=== PATIENT | male | born 1950 | race Caucasian/White ===

== ENCOUNTER 2016-12-16 06:15 | Day surgery (SDC) | payer OTHER ==
[~2016-12-16] VITALS: Ht 177.8 cm; Wt 81.8 kg
[~2016-12-16 06:15] MED LIST: 24HOUR ALLERGY10 MG PO; FISH OIL 1,2001 EAC4 PO; NOHOMEMEDS; SKELAXIN800 MG PO; ULTRAM50 MG PO; ZETIA10 MG PO
[2016-12-16 07:36] VITALS: BP 119/63
[2016-12-16 11:17] VITALS: BP 122/74
[2016-12-16 12:18] VITALS: BP 118/66
[2016-12-16 13:26] VITALS: BP 136/73
== END 2016-12-16 13:35 | disposition home or self-care (01) ==
LOC: SDC 06:15
PROC: 0SB20ZZ Excision of Lumbar Vertebral Disc, Open Approach (ICD-10-PCS; principal; 2016-12-16)
PROC: 01NB0ZZ Release Lumbar Nerve, Open Approach (ICD-10-PCS; principal; 2016-12-16)
DX: M51.16 Intervertebral disc disorders with radiculopathy, lumbar region (principal); E78.00 Pure hypercholesterolemia, unspecified; F17.210 Nicotine dependence, cigarettes, uncomplicated
CPT/HCPCS: 72020; 76000; J0131; J0690; J1100; J1170; J1885; J2250; J2405; J2710; J3010